=== PATIENT | male | born 1935 | race African-American/Black ===

== ENCOUNTER 2020-03-26 18:55 | Emergency (ER) | payer OTHER ==
[~2020-03-26] VITALS: Ht 162.6 cm; Wt 67.6 kg
[2020-03-26 19:53] LABS: ABSOLUTE NEUTROPHILS 8.3 thou/uL (1.4-8.2); BASOPHILS 0.9 % (0.0-2.0); HEMATOCRIT 39.2 % (42.0-52.0); HEMOGLOBIN 12.2 gm/dL (14.0-18.0); LYMPHOCYTES 18.7 % (24.0-44.0); MCH 28.7 pg (26.0-34.0); MCV 92.5 fL (80.0-100.0); MONOCYTES 7.1 % (1.0-8.0); PLATELET COUNT 258 thou/uL (150-400); POLYS 69.3 % (36.0-66.0); RBC 4.24 mil/uL (4.50-6.00); RDW 15.9 % (10.5-14.5)
[2020-03-26] MEDS ORDERED: NAMENDA 10 MG T10 MG PO (19:57)
[2020-03-26] MEDS ORDERED: NORVASC 2.5 MG2.5 M1 PO (19:57)
[2020-03-26] MEDS ORDERED: PRINIVIL10 MG PO (19:57)
[2020-03-26] MEDS ORDERED: DULOXETINE HCL60 MG PO (19:58)
[2020-03-26] MEDS ORDERED: CARVEDILOL12.5 MG PO (19:58)
[2020-03-26] MEDS ORDERED: CHILDREN'S ASPI81 M1 PO (19:59)
[2020-03-26] MEDS ORDERED: FLOMAX0.4 MG PO (19:59)
[2020-03-26] MEDS ORDERED: MOBIC7.5 MG PO (19:59)
[2020-03-26] MEDS ORDERED: VIT D3 PO (20:00)
[2020-03-26] MEDS ORDERED: ULTRACET TABLET1 TAB PO (20:00)
[2020-03-26] MEDS ORDERED: LIPITOR40 MG PO (20:00)
[2020-03-26] MEDS ORDERED: ALBUTEROL 90 MCG INH (20:01)
[2020-03-26] MEDS ORDERED: ZYRTEC10 M5 PO (20:01)
[2020-03-26] MEDS ORDERED: SPIRIVA INH (20:02)
[2020-03-26] MEDS ORDERED: WIXELA 250-501 EACH INH (20:02)
[2020-03-26] MEDS ORDERED: IRON PO (20:03)
[2020-03-26 20:04] LABS: CALCIUM 9.1 mg/dL (8.5-10.1); CREATININE 1.4 mg/dL (0.7-1.3); POTASSIUM 4.6 mmol/L (3.5-5.1)
[2020-03-26 20:07] LABS: APTT 30.1 Seconds (24.5-32.8); INR 1.3
[2020-03-26 22:13] VITALS: BP 123/61
[2020-03-26] MEDS ORDERED: KEFLEX500 M1 PO (22:45)
[2020-03-26] MEDS ORDERED: NORCO 5-325 TA1 EAC2 PO (22:45)
== END 2020-03-26 23:04 | disposition home or self-care (01) ==
LOC: ER 18:55
PROVIDERS: Emergency Medicine
DX: S51.811A Laceration without foreign body of right forearm, initial encounter (principal); S09.90XA Unspecified injury of head, initial encounter; Z87.891 Personal history of nicotine dependence; Z79.82 Long term (current) use of aspirin; Z79.899 Other long term (current) drug therapy; W26.8XXA Contact with other sharp object(s), not elsewhere classified, initial encounter; Y93.89 Activity, other specified; Y92.89 Other specified places as the place of occurrence of the external cause; Y99.8 Other external cause status